=== PATIENT | male | born 1945 | race Hispanic/Latino ===

== ENCOUNTER 2016-03-20 11:00 | Outpatient (CLI) | payer MEDICARE, OTHER ==
--- NOTE | 2016-03-20 15:15 | RAD ---
CHEST TWO VIEWS: Date: 03-20-16 FINDINGS: The lungs are slightly hyperexpanded. There is some confluent parenchymal changes in the upper lobe s bilaterally, right greater than left. The findings suggest developing pneumonia, perhaps on top o f bronchitis, as there is some mild generalized increase in lung markings. The heart size is normal for age. No large effusions were seen, though tiny ones might be present. The trachea is midline. IMPRESSION: Patchy upper lobe infiltrative changes, right greater than left. Developing infection presumed. Code T POS: HOME
== END 2016-03-20 11:01 | disposition home or self-care (01) ==
LOC: BURRAD 11:00
PROVIDERS: ATTEND Family Medicine
DX: J40 Bronchitis, not specified as acute or chronic (principal)
CPT/HCPCS: 71020

== ENCOUNTER 2016-05-27 02:51 | Emergency (ER) | payer MEDICARE, OTHER ==
[2016-05-27] MEDS ORDERED: Nitroglycerin 2% Ointment 1 INCH/1 GM Packet ONE (03:17)
[2016-05-27] MEDS ORDERED: Furosemide 40 MG/4 ML VIAL ONE ×2 (03:18→04:24)
[2016-05-27 03:31] LABS: #Basophils 0.2 thou/uL (0.0-0.2); #Eosinphils 0.4 thou/uL (0.0-0.7); #Lymphocytes 1.6 thou/uL (1.20-3.40); #Monocytes 1.3 thou/uL (0.11-0.59); #Neutrophils 7.8 thou/uL (1.40-6.50); %Basophils 1.5 % (0.0-1.0); %Eosinophils 3.9 % (0.0-10.0); %Lymphocytes 14.3 % (21.0-51.0); %Monocytes 11.3 % (0.0-10.0); Hemoglobin 12.7 g/dL (14.0-18.0); Mean Corpuscular HGB CONC 31.8 g/dL (32.0-36.0); Mean Corpuscular Hemoglobin 26.2 pg (27.0-31.0); Mean Corpuscular Volume 82.3 fl (80.0-94.0); Mean Platelet Volume 9.3 fL (7.4-10.4); Platelet Count 195 thou/uL (130-400); RBC Distribution Width 15.9 % (11.5-14.5); Red Blood Cell (RBC) Count 4.87 mill/uL (4.70-6.10); White Blood Cell (WBC) Count 11.3 thou/uL (4.8-10.8)
[2016-05-27 03:31] LABS: Bilirubin Negative (Negative); Blood, Urine Negative (Negative); Clarity Slightly Cloudy (Clear); Glucose, Urine (Dipstick) Negative (Negative); Leukocyte Negative (Negative); Nitrite Negative (Negative); Protein, Urine (Dipstick) > or equal to 300 mg/dL (Neg-Trace); Specific Gravity, Urine 1.025 (1.005-1.030)
[2016-05-27 03:32] LABS: INR-International Normal Ratio 1.1; Prothrombin Time 14.4 SEC (12.0-14.7)
[2016-05-27 03:33] LABS: PTT 33.1 SEC (22.9-36.1)
[2016-05-27 03:35] LABS: ALT (SGPT) 22 U/L (0-55); AST (SGOT) 27 U/L (5-34); Albumin 4.1 g/dL (3.4-4.8); Alkaline Phosphatase 81 U/L (40-150); Anion Gap 14 mmol/L (10-20); BUN (Urea Nitrogen) 36 mg/dL (8.4-25.7); Bilirubin, Total 1.1 mg/dL (0.2-1.2); Calc. Creatinine Clearance 0 mL/min (70-130); Calcium 9.6 mg/dL (7.8-10.44); Carbon Dioxide 23 mmol/L (23-31); Chloride 107 mmol/L (98-107); Estimated GFR-MDRD 29; Globulin 3.9 g/dL (2.4-3.5); Glucose 150 mg/dL (83-110); Potassium 3.7 mmol/L (3.5-5.1); Sodium 140 mmol/L (136-145)
[2016-05-27 03:37] LABS: CKMB 2.7 ng/mL (0-6.6); Troponin I Less than 0.010 ng/mL (< 0.028)
[2016-05-27 03:40] LABS: Bacteria/HPF None Seen HPF (None Seen); RBC/HPF None Seen HPF (0-3); Squamous Epithelial 0-3 HPF (0-3); WBC/HPF None Seen HPF (0-3)
[2016-05-27 03:41] LABS: D-Dimer Test 2.13 *mcg/mL (0.27-0.43)
[2016-05-27] MEDS ORDERED: Piperacillin/Tazobactam 3.375 GM VIAL ONE (04:17)
[2016-05-27] MEDS ORDERED: Sodium Chloride 0.9% 100 ML ONE (04:19)
--- NOTE | 2016-05-27 12:26 | RAD ---
CHEST 2 VIEWS: Date: 05/27/16 FINDINGS: The patchy infiltrative areas seen on the 03/20/16 study in the upper lobes have largely resolved. T here does appear to be infiltrate in the left lower lobe posteriorly. There is some slight blunting of the costophrenic angles. The lungs are mildly hyperexpanded. The right hilum is a bit larger than the left, though not significantly different than it appeared in March. The patient could benefit from an elective CT depending upon his symptoms and presentation. The heart size is stable. There a re no congestive changes. IMPRESSION: 1. Presumed left lower lobe infiltrate medially. 2. Patchy upper lobe infiltrate seen in March have resolved. 3. Slightly hyperexpanded lungs. 4. Mild right hilar prominence, though not really different than last month. In view of his recurrent symptoms and some areas that would be difficult to see well in his chest, t here may be consideration for an elective CT. POS: HOME
== END 2016-05-27 04:52 | disposition short-term general hospital (02) ==
LOC: BURERS 02:51
DX: J18.1 Lobar pneumonia, unspecified organism (principal); I13.0 Hypertensive heart and chronic kidney disease with heart failure and stage 1 through stage 4 chronic kidney disease, or unspecified chronic kidney disease; N18.9 Chronic kidney disease, unspecified; I50.9 Heart failure, unspecified; J81.1 Chronic pulmonary edema; N17.9 Acute kidney failure, unspecified; E78.5 Hyperlipidemia, unspecified; Z87.891 Personal history of nicotine dependence; Z79.82 Long term (current) use of aspirin; Z79.899 Other long term (current) drug therapy
CPT/HCPCS: 36415; 71020; 80053; 81003; 81015; 82553; 83605; 83880; 84443; 84484; 85025; 85379; 85610; 85730; 87040; 87149; 93005; 94760; 96365; 96375; 96376; J1940; J2543; J7050

== ENCOUNTER 2016-08-06 11:48 | Outpatient (CLI) | payer MEDICARE, OTHER ==
[2016-08-06 12:35] LABS: Anion Gap 14 mmol/L (10-20); BUN (Urea Nitrogen) 39 mg/dL (8.4-25.7); Calc. Creatinine Clearance 0 mL/min (70-130); Calcium 10.2 mg/dL (7.8-10.44); Carbon Dioxide 27 mmol/L (23-31); Chloride 103 mmol/L (98-107); Estimated GFR-MDRD 23; Glucose 110 mg/dL (83-110); Potassium 3.8 mmol/L (3.5-5.1); Sodium 140 mmol/L (136-145)
[2016-08-06 13:01] LABS: Hemoglobin 12.9 g/dL (14.0-18.0)
[2016-08-06 17:43] LABS: Creatinine, Urine 132.58 mg/dL (63-166)
== END 2016-08-06 11:49 | disposition home or self-care (01) ==
LOC: BURLAB 11:48
PROVIDERS: ATTEND Internal Medicine Nephrology
DX: I13.0 Hypertensive heart and chronic kidney disease with heart failure and stage 1 through stage 4 chronic kidney disease, or unspecified chronic kidney disease (principal); N18.3 Chronic kidney disease, stage 3 (moderate); I50.9 Heart failure, unspecified
CPT/HCPCS: 36415; 80048; 82306; 82570; 83970; 84100; 84156; 85014; 85018

== ENCOUNTER 2017-08-18 10:09 | Emergency (ER) | payer MEDICARE, OTHER ==
[2017-08-18 10:48] LABS: ALT (SGPT) 12 U/L (8-55); AST (SGOT) 13 U/L (5-34); Albumin 3.4 g/dL (3.4-4.8); Alkaline Phosphatase 79 U/L (40-150); Anion Gap 17 mmol/L (10-20); BUN (Urea Nitrogen) 55 mg/dL (8.4-25.7); Bilirubin, Total 1.1 mg/dL (0.2-1.2); Calc. Creatinine Clearance 0 mL/min (70-130); Calcium 9.3 mg/dL (7.8-10.44); Carbon Dioxide 18 mmol/L (23-31); Chloride 109 mmol/L (98-107); Estimated GFR-MDRD 29; Glucose 132 mg/dL (83-110); Potassium 3.5 mmol/L (3.5-5.1); Protein, Total 7.4 g/dL (5.8-8.1); Sodium 140 mmol/L (136-145)
[2017-08-18] MEDS ORDERED: Furosemide 40 MG/4 ML VIAL ONE (10:48)
[2017-08-18 10:50] LABS: Elliptocytes SLIGHT = 2-5 cells (100X) (0-1/hpf); Eosinophils 2 % (0-10); Hemoglobin 8.1 g/dL (14.0-18.0); Hypochromia MODERATE=16-30 cells (100X) (0-5/hpf); Lymphocytes 14 % (21-51); MDiff Complete? YES; Macrocytosis SLIGHT = 6-15 cells (100X) (0-5/hpf); Mean Corpuscular HGB CONC 31.5 g/dL (32.0-36.0); Mean Corpuscular Hemoglobin 23.5 pg (27.0-31.0); Mean Corpuscular Volume 74.6 fl (80.0-94.0); Mean Platelet Volume 6.9 fL (7.4-10.4); Microcytosis MODERATE=15-30 cells (100X) (0-5/hpf); Monocytes 7 % (0-10); Neutrophil 77 % (42-75); Platelet Count 246 thou/uL (130-400); Polychromasia SLIGHT = 2-3 cells (100X) (0-2/hpf); RBC Distribution Width 16.8 % (11.5-14.5); Red Blood Cell (RBC) Count 3.42 mill/uL (4.70-6.10); Tear Drops SLIGHT = 2-5 cells (100X) (0-1/hpf)
[2017-08-18 10:52] LABS: CKMB 2.4 ng/mL (0-6.6); Troponin I 0.018 ng/mL (< 0.028)
--- NOTE | 2017-08-18 11:03 | RAD ---
PORTABLE CHEST: Date: 08/18/17 PROVIDED CLINICAL HISTORY: Dyspnea. FINDINGS: Comparison with 05/11/17. Cardiac silhouette is enlarged. Prominence of pulmonary vasculature and pulmonary interstitium are no derick. No definite focal consolidation, pleural fluid, or pneumothorax apparent. IMPRESSION: Cardiomegaly and findings suggesting congestive failure. Follow-up recommended. POS: COTY
[2017-08-18 11:21] LABS: Clarity Clear (Clear)
[2017-08-18 11:22] LABS: Glucose, Urine (Dipstick) Negative (Negative); Leukocyte Negative (Negative); Nitrite Negative (Negative); Protein, Urine (Dipstick) Negative (Neg-Trace); Specific Gravity, Urine 1.008 (1.002-1.036); Urobilinogen 0.2 mg/dL (0.2-1.0); pH, Urine 5.5 (5.0-9.0)
[2017-08-18 11:23] LABS: Bilirubin Negative (Negative); Blood, Urine Negative (Negative)
== END 2017-08-18 11:23 | disposition short-term general hospital (02) ==
LOC: BURERS 10:09
DX: I13.2 Hypertensive heart and chronic kidney disease with heart failure and with stage 5 chronic kidney disease, or end stage renal disease (principal); I50.9 Heart failure, unspecified; D63.1 Anemia in chronic kidney disease; N18.9 Chronic kidney disease, unspecified; Z79.891 Long term (current) use of opiate analgesic; Z79.01 Long term (current) use of anticoagulants; Z79.82 Long term (current) use of aspirin; Z79.899 Other long term (current) drug therapy
CPT/HCPCS: 71045; 80053; 81003; 82553; 83880; 84484; 85025; 93005; 94760; 96374; J1940

== ENCOUNTER 2017-09-12 10:37 | Outpatient (CLI) | payer MEDICARE, OTHER ==
[2017-09-12 11:30] LABS: Hemoglobin 9.7 g/dL (14.0-18.0)
[2017-09-12 11:33] LABS: Anion Gap 16 mmol/L (10-20); BUN (Urea Nitrogen) 28 mg/dL (8.4-25.7); Calc. Creatinine Clearance 0 mL/min (70-130); Calcium 9.1 mg/dL (7.8-10.44); Carbon Dioxide 26 mmol/L (23-31); Chloride 101 mmol/L (98-107); Estimated GFR-MDRD 29; Glucose 163 mg/dL (83-110); Potassium 3.7 mmol/L (3.5-5.1); Sodium 139 mmol/L (136-145)
--- NOTE | 2017-09-12 18:11 | RAD ---
RIGHT KNEE FOUR VIEWS: 09/12/17 No fracture or joint space narrowing was seen. arthritic changes are really not at all prominent in t his patient. There might be a small joint effusion. Vascular calcifications are evident, particularly in the distal SFA/proximal popliteal artery. IMPRESSION: No acute findings aside from a very small joint effusion. POS: HOME
== END 2017-09-12 10:38 | disposition home or self-care (01) ==
LOC: BURRAD 10:37
PROVIDERS: ATTEND Family Medicine
DX: M25.561 Pain in right knee (principal); N18.4 Chronic kidney disease, stage 4 (severe); D63.1 Anemia in chronic kidney disease; R53.82 Chronic fatigue, unspecified; M25.461 Effusion, right knee
CPT/HCPCS: 36415; 80048; 83970; 85014; 85018